=== PATIENT | male | born 1955 | race Caucasian/White ===

== ENCOUNTER 2018-04-06 12:21 | Emergency (ER) | payer MEDICAID ==
[2018-04-06] MEDS ORDERED: IPRATROPIUM/ALBUTEROL 3 ML DEYVIAL IH ONE (13:45)
--- NOTE | 2018-04-06 13:53 | EDPHY ---
H & P Time Seen by Provider: 04/06/18 13:06 HPI/ROS: HPI Cough, shortness of breath. 62-year-old male by ambulance. He is homeless. Chronically homeless. He reports that he has had a cough, sometimes productive of whitish to yellowish sputum ongoing for the last 1-2 months. Cough worsening over the last week. He also reports increased fatigue over the last week. Denies fever. He has had associated shortness of breath with the cough. ROS: Constitutional: No fever, no chills. As above. Eyes: No discharge. No changes in vision. ENT: No sore throat. No nasal congestion or rhinorrhea. Respiratory: As above. Cardiac: No chest pain, no palpitations. Gastrointestinal: No abdominal pain, no vomiting, no diarrhea. Genitourinary: No hematuria. No dysuria or increased frequency with urination. Musculoskeletal: No back pain. No neck pain. No myalgias or arthralgias. Skin: No rashes. Neurological: No headache. No focal weakness or altered sensation. Past medical history: Kidney stones, colon cancer, AAA, right eye blindness. Social history: Smoker. Denies alcohol. No IV drugs or street drugs. Chronically homeless. Physical Exam: General Appearance: Sleeping but easily arousable and not in distress. This patient is responding to questions appropriately and in full sentences. This patient appears well-hydrated and well-nourished. Respiratory: There are no retractions, lungs are mildly diminished bilaterally. No significant wheezing. No rhonchi. No tachypnea. Cardiovascular: Regular rate and rhythm. No murmur appreciated. Neurological: Motor sensory function is grossly intact. Cranial nerves are normal. Gait is normal. Skin: Warm and dry, no rashes. Musculoskeletal: Neck is supple and nontender. Extremities are symmetrical. All joints range without pain or impingement. Psychiatric: No agitation. No depression. Database: EKG: Imaging: Chest x-ray PA and lateral; the cardiac mediastinal silhouette is unremarkable. No evidence of infiltrate or pneumothorax. Mild peribronchial thickening suggestive of bronchitis. No other acute cardiopulmonary disease process noted. Interpreted by me. Procedures: Emergency department course: Triage vital signs reviewed and are unremarkable. He is afebrile. Pulse oximetry is 96% on room air. Chest x-ray obtained. Patient's presentation is consistent with bronchitis. Patient will be given nebulizer, albuterol/ Atrovent. 2:15 p.m., the patient was re-evaluated, is feeling better after above nebulizer treatment. Room air pulse oximetry is currently 96%. He is not tachypneic. He has improved air movement bilaterally and repeat pulmonary exam. He has been given 100 mg of doxycycline in the emergency department. I discussed plan for discharge and follow-up through [facility]. I filled his prescription for doxycycline through our assistance program. Dosing of this medication was discussed. I also provided him with a take-home albuterol meter dose inhaler. Dosing was discussed. Follow-up and return to emergency department precautions thoroughly reviewed with him. All of his questions were answered. He was discharged from the emergency department in good condition. Differential Diagnosis: The differential diagnosis on this patient includes but is not limited to bronchitis. Congestive heart failure, pulmonary embolism, pneumonia unlikely. This represents a partial list of diagnoses considered. These considerations are based on history, physical exam, past history, reassessment and diagnostic testing. Smoking Status: Current every day smoker Constitutional: Initial Vital Signs Temperature (C) 36.6 C 04/06/18 12:26 Heart Rate 95 04/06/18 12:26 Respiratory Rate 20 04/06/18 12:26 Blood Pressure 129/81 H 04/06/18 12:26 O2 Sat (%) 96 04/06/18 12:26 O2 Delivery Mode Room Air Allergies/Adverse Reactions: No Known Allergies Allergy (Verified 10/23/12 20:05) Home Medications: Medication Instructions Recorded Herbals/Supplements -Info Only 1 each PO AD 04/26/13 Antidepressant 04/06/18 Doxycycline Hyclate 100 mg PO BID #20 capsule 04/06/18 Hallucination 04/06/18 Medical Decision Making - Data Points Medications Given: Discontinued Medications Albuterol Sulfate (Proventil Inh Prepack) 1 mdi TAKEHOME EDNOW ONE Stop: 04/06/18 14:03 Last Admin: 04/06/18 14:34 Dose: 1 mdi Albuterol/Ipratropium (Duoneb) 6 ml IH EDNOW ONE Stop: 04/06/18 13:46 Last Admin: 04/06/18 13:58 Dose: 6 ml Doxycycline Hyclate (Doxycycline Hyclate) 100 mg PO EDNOW ONE PRN Reason: Protocol Stop: 04/06/18 14:01 Last Admin: 04/06/18 14:35 Dose: 100 mg Departure - Departure Disposition: Home, Routine, Self-Care Clinical Impression: Acute bronchitis Condition: Good Instructions: Doxycycline (By mouth), Albuterol (By breathing), Acute Bronchitis (ED) Additional Instructions: Read and follow provided instructions. Follow-up with your primary care physician in 1-2 days for re-evaluation. Please go to the walk-in clinic at [facility]. Take antibiotic as prescribed through entire course of treatment. 1 pill, twice daily, once in the morning and once in the evening, for 10 days. Albuterol meter dose inhaler: 1-2 puffs every 2-4 hours as needed for cough and shortness of breath. Return to the emergency department for worsening symptoms, worsening cough, difficulty breathing, fever or other serious concerns. Referrals: [facility],. [Clinic] - As per Instructions Prescriptions: Doxycycline Hyclate 100 mg PO BID #20 capsule
[2018-04-06 13:59] VITALS: BP 122/100
[2018-04-06] MEDS ORDERED: DOXYCYCLINE HYCLATE 100 MG CAP/TAB PO ONE (14:00)
[2018-04-06] MEDS ORDERED: ALBUTEROL INH PREPACK MDI TAKEHOME ONE (14:02)
== END 2018-04-06 14:40 | disposition home or self-care (01) ==
LOC: EDUNIT#
DX: J40 Bronchitis, not specified as acute or chronic (principal); Z59.0 Homelessness